=== PATIENT | male | born 1985 | race Two or more races ===

== ENCOUNTER 2022-09-30 10:34 | Emergency (ER) | payer BC, SELFPAY ==
[2022-09-30 11:07] VITALS: BP 132/38; PULSE 80; RESP 18; TEMP 36.8; O2SAT 98; BMI 26.4
--- NOTE | 2022-09-30 11:07 | ED.BACK ---
HPI - Back Pain/Injury General Chief Complaint: Skin/Abscess/Foreign Body Stated Complaint: Rash/Back pain Time Seen by Provider: 09/30/22 11:08 Source: patient Mode of arrival: ambulatory History of Present Illness HPI Narrative: 37-year-old male with no significant past medical history presenting to the ED complaining of painful rash to left chest and back x3 days. Reports burning pain. States rash and pain started at the same time. Denies known fever, chills, travel, nausea/vomiting, hematuria/dysuria MD elicited complaint: back pain Onset (ago): day(s) Related Data Previous Rx's Medication Instructions Recorded gabapentin 100 mg capsule 100 mg PO TID 7 days #21 caps 09/30/22 prednisone 10 mg tablet 10 mg PO DAILY #20 tabs 09/30/22 valacyclovir 1 gram tablet 1,000 mg PO TID 7 days #21 tabs 09/30/22 (Valtrex) Allergies Allergy/AdvReac Type Severity Reaction Status Date / Time No Known Allergies Allergy Verified 09/30/22 11:11 Review of Systems Review of Systems: Constitutional: No Weight loss, No Fever, No Chills ENT/Mouth: No Ear Pain, No Nasal Congestion, No sore throat, No Rhinorrhea, No Swallowing Difficulty Cardiovascular: No Chest Pain, No SOB Respiratory: No Cough, No Sputum, No Wheezing Gastrointestinal: No Nausea, No Vomiting, No Diarrhea, No Constipation, + Abdominal pain Genitourinary: No Dysuria, No Urinary Frequency, No Hematuria, No Urinary Incontinence/retention, No Urgency, No Flank Pain Musculoskeletal: No joint pain, No Myalgias, No Joint Swelling Skin: No Skin Lesions, + rash Neuro: No Weakness, No Numbness, No Paresthesias Yes all other systems are reviewed and are negative Constitutional: Constitutional: Reports as per [facility] Past Medical History Attestation statement: The following information was validated with the patient. Social History Social History Advance Directives: No Advance Directives Information Provided: No Physical Exam Vital Signs: Vital Signs: Last Vital Signs Temp 98.2 F 09/30/22 11:07 Pulse 80 09/30/22 11:07 Resp 18 09/30/22 11:07 BP 132/38 L 09/30/22 11:07 Pulse Ox 98 09/30/22 11:07 O2 Del Method 09/30/22 11:07 BMI result Body Mass Index 26.4 Const: General: cooperative, healthy appearing and no acute distress Orientation/consciousness: patient oriented x3 Limitations: no limitations HEENT: Head: Yes normal to inspection and Yes atraumatic Ears: hearing grossly normal bilaterally General nose exam: Normal external nose present Face and sinus: Yes normal facial exam Eyes: General: appearance normal, both eyes and all related structures EOM: EOMs intact bilaterally Neck: Neck: Yes normal visual inspection and Yes no meningeal signs Resp: Effort & Inspection: normal respiratory effort and no respiratory distress Auscultation: clear to auscultation bilaterally Cardio: Rate: regular rate Heart sounds: S1 normal heart sound present and S2 normal heart sound present GI: Inspection: Yes normal to inspection Palpation (GI): Soft to palpation, nontender, no guarding and not rigid : General: Yes no CVA tenderness Back/Spine/Pelvis: Back: no CVA tenderness Skin: Other: + vesicular shingles rash to left flank around to left chest, mild erythematous base. No open wounds/crusting, no warmth Wounds: no wounds Neuro: General: patient oriented x3, tone normal and no meningeal signs Gait exam (Neuro): Normal gait present Extrem: General: Yes normal to inspection Medical Decision Making Medical Decision Making MDM Narrative: 37-year-old male with no significant past medical history presenting to the ED complaining of painful rash to left chest and back x3 days. On exam vital signs stable, NAD, nontoxic, zoster rash noted to left flank/ chest wall in dermatomal fashion. No evidence of overlying cellulitis/infection. Low suspicion for intra-abdominal pathology including cholecystitis/lithiasis or pancreatitis/renal stone/pyelo. Will discharge home on Valtrex, prednisone, and gabapentin Results discussed with patient including worrisome signs and symptoms and strict return precautions, and when to return to the emergency department. They verbalized understanding and feel safe for discharge at this time. Differential Diagnosis Differential Diagnoses: The differential diagnosis associated with the presentation includes As above Prescription Management I considered prescription management with: Pain Medication and Antiviral Discharge Plan Discharge Clinical Impression: Herpes zoster Patient Disposition: Home, Self-Care Instructions: Shingles (ED) Additional Instructions: You have shingles. This is contagious. Stay away from children, elderly, and people as this can be very dangerous for them. Valtrex is an antiviral medication. Gabapentin is for pain. Prednisone is a steroid If area begins look infected, is increasingly or increasingly painful return to the emergency department Please follow-up with your doctor Maggi jacobo. [place] es contagioso. Mant?ngase alejado de los ni?os, ancianos y personas embarazadas, ya que esto puede ser muy peligroso para ellos. Valtrex es un medicamento antiviral. La gabapentina es para el dolor. La prednisona es un esteroide. Si el ?leydi comienza a lucir infectada, es cada vez m?s o cada vez m?s dolorosa, regrese al departamento de emergencias. Por favor, madie un seguimiento con holt m?dico. Prescriptions: New valacyclovir [Valtrex] 1 gram tablet 1,000 mg PO TID 7 Days Qty: 21 0RF gabapentin 100 mg capsule 100 mg PO TID 7 Days Qty: 21 0RF prednisone 10 mg tablet 10 mg PO DAILY Qty: 20 0RF Taper: Prednisone 40 mg daily for 3 Days and 0 Hour 30 mg daily for 3 Days and 0 Hour 20 mg daily for 3 Days and 0 Hour 10 mg daily for 3 Days and 0 Hour Rx Instructions: prednisone 10 mg: take 4 tablets (40 mg) for 2 days; 3 tablets (30 mg) for 2 days; 2 (20mg) tablets for 2 days and then 1 (10mg) tablet for 2 days Referrals: Physician,Unknown J [Physician] - 10 days Stand Alone Forms: Work/School Release Print Language: Wallisian
== END 2022-09-30 11:50 | disposition home or self-care (01) ==
PROVIDERS: Emergency Provider Emergency Medicine
DX: B02.9 Zoster without complications (principal)
CPT/HCPCS: 99282; 99283

== ENCOUNTER 2024-12-11 13:22 | Emergency (ER) | payer BC, SELFPAY ==
--- NOTE | ~2024-12-11 | XR_ITS ---
EXAMINATION: XR NECK SOFT TISSUE HISTORY: anterior abscess, ? Metallic FB COMPARISON: There are no prior studies for comparison. FINDINGS: AP and lateral views of the soft tissues of the neck are submitted. The epiglottis and aryepiglottic folds are unremarkable in appearance. The airways patent. There is soft tissue swelling over the thyroid cartilage. There is no prevertebral soft tissue swelling. No radiopaque foreign body is identified. XR/XR soft tissue neck IMPRESSION: Soft tissue swelling over the thyroid cartilage. No radiopaque foreign body is identified. Electronically signed by: Suhas Pickering MD 12/11/2024 02:26 PM EDT
[2024-12-11 13:48] VITALS: BP 112/50; PULSE 86; RESP 18; TEMP 37; O2SAT 100; BMI 24.4
--- NOTE | 2024-12-11 13:52 | ED_ITS ---
HPI - General Adult General Chief complaint: Skin/Abscess/Foreign Body Stated complaint: throat pain Time Seen by Provider: 12/11/24 17:10 History of Present Illness ED Provider: Saadia CASTELLANOS narrative: The patient is a 39-year-old male with no significant past medical history. He is concerned that he has an area of swelling and tenderness on his neck in the region of his Dwain's apple. He wonders if perhaps he injured himself shaving. 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 The patient says that he has had similar problems in the past but they have usually resolved on their own. He says he has a similar area of swelling on his left elbow and behind his left ear. Related Data Previous Rx's ?Medication ?Instructions ?Recorded gabapentin 100 mg capsule 100 mg PO TID 7 days #21 caps 09/30/22 prednisone 10 mg tablet 10 mg PO DAILY #20 tabs 09/30/22 valacyclovir 1 gram tablet 1,000 mg PO TID 7 days #21 tabs 09/30/22 (Valtrex) bacitracin 500 unit/gram topical 1 appl topical BID #14 grams 12/11/24 ointment cephalexin 500 mg capsule 500 mg PO QID 7 days #28 caps 12/11/24 sulfamethoxazole 800 1 tab PO BID #14 tabs 12/11/24 mg-trimethoprim 160 mg tablet (Bactrim DS) Allergies Allergy/AdvReac Type Severity Reaction Status Date / Time No Known Allergies Allergy Verified 12/11/24 13:50 Review of Systems 2 Review of Systems: Yes all other systems are reviewed and are negative [facility] Social History Social History Advance Directives: No Advance Directives Information Provided: No Physical Exam ED Vital Signs: Vital Signs - 24 hr 12/11/24 13:48 12/11/24 17:01 12/11/24 19:05 Temperature 98.6 F 98.4 F 98.4 F Pulse Rate 86 61 61 Respiratory Rate 18 16 16 Blood Pressure 112/50 L 115/70 115/70 Pulse Oximetry 100 98 98 Oxygen Delivery Method Room Air Room Air Room Air BMI result Body Mass Index 24.4 Const Other: The patient is awake and alert, pleasant and cooperative. He does not appear in acute distress. HENMT Other: The face is symmetrical. Mucous membranes moist. Eyes General: appearance normal, both eyes and all related structures Neck Other: The patient has an area of swelling and erythema in the middle of his neck overlying the thyroid cartilage. There are also some apparent pustule areas on the swelling. The area is tender. The neck is otherwise unremarkable. Resp Effort & Inspection: normal respiratory effort Cardio Rate: regular rate Rhythm: regular rhythm Heart sounds: S1 normal heart sound present and S2 normal heart sound present Skin Other: The patient has an area of redness and swelling to the skin over the thyroid cartilage. There are some pustules as well. The overall appearance is suggestive of a sebaceous cyst abscess. The patient also has a somewhat similar but less tender and red area of swelling over the left elbow and behind the left ear. Neuro Other: The patient is awake and alert with a normal mental status. Cranial nerves 2-12 are grossly intact. He moves his extremities normally. Extrem General: Yes normal to inspection, Yes no pedal edema and Yes no calf tenderness Course Course Course Narrative: This is a rapid medical exam performed by Camila Ray NP: Additional HPI, ROS, PE not included below will be deferred to primary provider. Patient is a 31-year-old Guinean-speaking male presented to emergency department with complaint of redness and swelling to his anterior throat for the past 3-4 days. Denies fevers. 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 Fluctuant erythema over cricoid cartilage. Plan: xray to r/o fb Medications Administered Discontinued Medications Generic Name Dose Route Start Last Admin Trade Name Georgette PRN Reason Stop Dose Admin Bacitracin 1 appl 12/11/24 18:11 12/11/24 18:59 Bacitracin Oint 0.9 Gm Packet TOPICAL 12/11/24 18:12 1 appl ONCE ONE Administration Protocol Cephalexin HCl 500 mg 12/11/24 18:08 12/11/24 18:59 Cephalexin 500 Mg Capsule PO 12/11/24 18:09 500 mg ONCE ONE Administration Lidocaine HCl 5 ml 12/11/24 17:25 12/11/24 17:55 Lidocaine Hcl 1 % Mpf 5 Ml Vial INFILTRATI 12/11/24 17:26 5 ml ONCE ONE Administration Trimethoprim/Sulfamethoxazole 1 tab 12/11/24 18:08 12/11/24 18:59 Sulfamethox/Trimeth 800/160 Tablet PO 12/11/24 18:09 1 tab ONCE ONE Administration Procedures Abscess I/D Site: neck (Anterior neck over thyroid cartilage) Local Anesthetic: lidocaine 1% Amount of anesthesia used (mL): 2 Technique: incised with blade Amount of fluid expressed (mL): 0.5 Sent for culture/gram staining?: Yes Irrigation: No Packing used?: none Medical Decision Making Medical Decision Making [facility] Narrative: The patient is a very pleasant 39-year-old male who has an area of swelling, redness, and discomfort to the skin of the anterior neck overlying the thyroid cartilage. The lesion has the appearance of a sebaceous cyst abscess. I explained to the patient that I thought he likely had an abscess and that an incision to drain a possible abscess would be appropriate. The patient understood and agreed to proceed. The skin was prepped with Betadine. I anesthetized across the lesion with 1% plain lidocaine using a 30 gauge needle. After good anesthesia was achieved I made an incision with a #11 Blade horizontally across the area of swelling. I was surprised at only a very small amount of pus was released with the incision. I probed into the swelling with forceps to see if I could find any pockets of pus but I really found very little additional pus and only a small amount of sebaceous material. The wound was swabbed with a culture swab and this was sent has a culture sample. The wound was dressed with bacitracin and a dressing. The patient will be started on cephalexin and Bactrim. The patient was given the contact information for [facility] [place] for a prompt follow up appointment. He should return if worse. Discharge Plan Discharge Clinical Impression: Sebaceous cyst Patient Disposition: Home, Self-Care Instructions: Abscess (ED), Abscess Incision and Drainage (DC) Additional Instructions: Please take the antibiotics as prescribed. Please take this sulfamethoxazole-trimethoprim 2 times a day. Please take the cephalexin 4 times a day. Please apply the bacitracin ointment 2 times a day with dressing changes to the wound. Please contact the surgery office tomorrow morning for a follow up appointment for further care of this problem. Please work on getting a regular primary care doctor. Return to the emergency room if significantly worse. Prescriptions: New sulfamethoxazole-trimethoprim [Bactrim DS] 800-160 mg tablet 1 tab PO BID Qty: 14 0RF cephalexin 500 mg capsule 500 mg PO QID 7 Days Qty: 28 0RF bacitracin 500 unit/gram ointment 1 appl topical BID Qty: 14 0RF No Action valacyclovir [Valtrex] 1 gram tablet 1,000 mg PO TID 7 Days Qty: 21 0RF gabapentin 100 mg capsule 100 mg PO TID 7 Days Qty: 21 0RF prednisone 10 mg tablet 10 mg PO DAILY Qty: 20 0RF Taper: Prednisone 40 mg daily for 3 Days and 0 Hour 30 mg daily for 3 Days and 0 Hour 20 mg daily for 3 Days and 0 Hour 10 mg daily for 3 Days and 0 Hour Rx Instructions: prednisone 10 mg: take 4 tablets (40 mg) for 2 days; 3 tablets (30 mg) for 2 days; 2 (20mg) tablets for 2 days and then 1 (10mg) tablet for 2 days Referrals: [facility] [place] General Surgeons [Provider Group] (Sebaceous cyst abscess) Stand Alone Forms: Work/School Release Interventions: ED Discharge Assessment Last Done: 12/11/24 19:05 Discharge Date/Time: 12/11/24 19:05 Print Language: Guinean
[2024-12-11 17:01] VITALS: BP 115/70; PULSE 61; RESP 16; TEMP 36.9; O2SAT 98
[2024-12-11] MEDS: Lidocaine HCl 1 % MPF 5 ML VIAL INFILTRATI (17:55)
[2024-12-11] MEDS: cephALEXin 500 MG CAPSULE PO (18:59)
[2024-12-11] MEDS: Sulfamethox/Trimeth 800/160 TABLET 1 TAB PO (18:59)
[2024-12-11] MEDS: Bacitracin Oint 0.9 GM PACKET 1 APPL TOPICAL (18:59)
[2024-12-11 19:05] VITALS: BP 115/70; PULSE 61; RESP 16; TEMP 36.9; O2SAT 98
== END 2024-12-11 19:05 | disposition home or self-care (01) ==
PROVIDERS: Emergency Provider Emergency Medicine
DX: L72.3 Sebaceous cyst (principal); M54.2 Cervicalgia; R07.0 Pain in throat
CPT/HCPCS: 10060; 70360; 87070; 87205; 99283; 99284; J2003

== ENCOUNTER → 2024-12-11 13:54 | Outpatient (BNV) | payer BC, SELFPAY | PROVIDERS: Visit Provider Radiology Diagnostic Radiology | DX: R22.1 Localized swelling, mass and lump, neck (principal) | CPT/HCPCS: 70360 ==

== ENCOUNTER 2024-12-14 09:45 | Outpatient (AMB) | payer SELFPAY ==
--- NOTE | 2024-12-14 09:49 | A.OFFVIS_ITS ---
Vital Signs 12/14/24 09:57 Height 5 ft 6 in Weight 154 lb BMI 24.9 Intake Visit Reasons: abscess of the neck Intake Note: This patient presents for [facility] emergency department follow-up for abscess of the neck. Pt c/o; on 2 rounds of abx cephalexin 500mg and Bactrim DS, reports abscess has diminished in size, reports last night after he showered he squeezed the area and had some discharge. Real Estate Recruiter Required: Yes Real Estate Recruiter Language: Kiss Setter Hand Services: Real Estate Recruiter Present Real Estate Recruiter Name: Pipo Information Interpreted: non-clinical & clinical Accompanied by: Self / Same As Patient Allergies No Known Allergies Allergy (Verified 12/14/24 09:59) Medication List - Last Reconciled 12/14/24 by Alberto Jose MD bacitracin 1 appl topical BID cephalexin 500 mg PO QID 7 days gabapentin 100 mg PO TID 7 days prednisone 10 mg See Taper PO DAILY sulfamethoxazole-trimethoprim 800-160 mg (Bactrim DS) 1 tab PO BID valacyclovir (Valtrex) 1,000 mg PO TID 7 days HPI HPI abscess of the neck: Details: 39-year-old male referred by the ER for an abscess on the anterior neck. He was seen there 3 days ago because of this abscess. He said he had a pimple like lesion on this area for long time but this has become swollen and tender. An I and D was attempted but there was minimal drainage. He was therefore referred to me because of the swelling He says that the swelling has decreased to some extent since that time. He denies any fever. He is on Bactrim for antibiotics. He does state that he has had cysts gets swollen periodically and he says that he has ?ingrown hair? on different parts of his body. [facility] Medical History (Updated 12/14/24 @ 10:33 by Alberto Jose MD) Infected sebaceous cyst Surgical History (Updated 12/14/24 @ 09:59 by ISMAEL Jefferson) No pertinent past surgical history Family History (Updated 12/14/24 @ 09:59 by ISMAEL Jefferson) Other Family history unknown Social History (Updated 12/14/24 @ 09:59 by ISMAEL Jefferson) Alcohol intake: unknown Patient Tobacco Use Status: Tobacco use Unknown Review of Systems Const Denies chills and Denies fever(s) Card Denies chest pain, Denies dyspnea and Denies dyspnea on exertion Resp Denies cough, Denies dyspnea and Denies dyspnea on exertion GI Denies hematochezia and Denies change in bowel habits Denies hematuria and Denies difficulty urinating Musc Denies back pain and Denies limited range of motion Neuro Denies focal weakness and Denies convulsions Psych Denies depression and Denies mood swings Physical Exam Vital Signs: BMI result Body Mass Index 24.9 Const General: comfortable and no acute distress Orientation/consciousness: patient oriented x3 Neck Other: Anterior neck with note of a cystic induration with central fluctuance, diameter of about 2.5 cm, well-defined Neck: Yes no lymphadenopathy Resp Auscultation: clear to auscultation bilaterally Cardio Rhythm: regular rhythm GI Palpation (GI): Soft to palpation, nontender and no guarding Neuro General: patient oriented x3 Office Procedures Debridement Details: He was in prone position. The area of the cyst on the neck was prepped and draped. Lidocaine 1% was used for local anesthesia. I made a cruciate incision on the skin overlying this central fluctuance using blade 11. This carried down through the full-thickness of the skin. There was note of a cystic area note of significant fibrinous contents as well as debris. Minimal pus was drained. I did sharp excisional debridement of all this debris within the cystic cavity. This was consistent with an infected epidermal cyst. I opened up an area about 1 cm in diameter. He therefore had an open wound. I instructed him on good wound care. He tolerated procedure well. There were no immediate complications. [id number] of skin tissue Procedure code (CPT) selection complete Assessment & Plan Assessment & Plan (1) Infected sebaceous cyst: Code(s): L72.3 - Sebaceous cyst; L08.9 - Local infection of the skin and subcutaneous tissue, unspecified Category: Medical Plan: He has what appears to be an infected sebaceous cyst on the anterior neck. This is still swollen has what appears to be central fluctuance. I explained to him it would be best to do an I and D and he agreed. I&D was done along with sharp debridement using scissors because of the presence of epithelial area and fibrinous debris in the cavity. He tolerated procedure well. He was given wound care instructions. He is to complete his course of oral antibiotics I will see him again in the office in about 2 weeks for a wound check. Coding Level of Care Code New Pt Level 3 (98857) Diagnoses Infected sebaceous cyst L72.3; L08.9 CPT Codes Skin Debridement - CPT: 23963-[id number] of skin tissue ([id number])
[2024-12-14 09:57] VITALS: BMI 24.9
== END 2024-12-14 10:35 | disposition home or self-care (01) ==
PROVIDERS: Visit Provider Surgery
DX: L72.3 Sebaceous cyst (principal); L08.9 Local infection of the skin and subcutaneous tissue, unspecified; L72.0 Epidermal cyst
CPT/HCPCS: 11042; 99203

== ENCOUNTER → 2024-12-14 09:45 | Outpatient (BNVA) | payer SELFPAY | PROVIDERS: Visit Provider Surgery | DX: L02.11 Cutaneous abscess of neck (principal); L72.3 Sebaceous cyst; Z79.2 Long term (current) use of antibiotics | CPT/HCPCS: 11042; 99202 ==

== ENCOUNTER 2025-01-04 15:02 | Outpatient (AMB) | payer BC, SELFPAY ==
--- NOTE | 2025-01-04 15:03 | MHC.OFFVIS ---
Vital Signs 01/04/25 15:11 Height 5 ft 6 in Weight 158 lb BMI 25.5 BP 127/64 Blood Pressure Location Rt brachial Position Sitting Pulse 91 Intake Visit Reasons: s/p excision abscess of the neck Intake Note: Patient here s/p I&D ant neck. Finished Bactrim, Cephalexin course. Reports improvement. Patient c/o: abscess much improved. Denies pain, oozing. Resident Athletic Trainer Required: No Accompanied by: Self / Same As Patient Allergies No Known Allergies Allergy (Verified 01/04/25 15:09) Medication List - Last Reviewed 01/04/25 by ISMAEL Browning bacitracin 1 appl topical BID HPI HPI s/p excision abscess of the neck: Details: He had undergone debridement of an infected epidermal cyst in the posterior neck the office last 12/14/2024. He tolerated procedure well. He denies any new complaints. He also has a mass on the left arm near the elbow that he has had for about a year now. He says that this often times swell up. He wants this removed as well. [facility] Medical History (Updated 01/04/25 @ 15:19 by Alberto Jose MD) Epidermal cyst Infected sebaceous cyst Surgical History No pertinent past surgical history Family History Father HTN (hypertension) Other Family history unknown Social History Alcohol intake: current Alcohol intake frequency: a few times a week Alcohol type: beer Patient Tobacco Use Status: Tobacco use Unknown Cigarettes Per Day: 10 Review of Systems Const Denies chills and Denies fever(s) Card Denies chest pain, Denies dyspnea and Denies dyspnea on exertion Resp Denies cough, Denies dyspnea and Denies dyspnea on exertion GI Denies hematochezia and Denies change in bowel habits Denies hematuria and Denies difficulty urinating Musc Denies back pain and Denies limited range of motion Neuro Denies focal weakness and Denies convulsions Psych Denies depression and Denies mood swings Physical Exam Const General: comfortable and no acute distress Neck Other: Debridement site anterior neck is well healed, fully reepithelialized, not infected, Resp Effort & Inspection: normal respiratory effort Extrem Other: Left arm near the elbow is note of a cystic induration, about 2 cm in diameter, with some restlessness, consistent with an epidermal cyst, not fluctuant Assessment & Plan Assessment & Plan (1) Infected sebaceous cyst: Code(s): L72.3 - Sebaceous cyst; L08.9 - Local infection of the skin and subcutaneous tissue, unspecified Category: Medical Plan: I had sharply debrided an infected epidermal cyst on the anterior neck. This has now fully healed. He can follow up on a p.r.n. basis for this. (2) Epidermal cyst: Code(s): L72.0 - Epidermal cyst Category: Medical Plan: He has a cystic induration on the left arm near the elbow that appears to be an epidermal cyst. He wants this removed. He understands the technique of excision under local anesthesia. He is aware of the risks, benefits, and alternatives We will schedule him for excision of this epidermal cyst in the office on his next visit. Coding Level of Care Code Est Pt Level 3 (54899) Diagnoses Infected sebaceous cyst L72.3; L08.9 Epidermal cyst L72.0
[2025-01-04 15:11] VITALS: BP 127/64; PULSE 91; BMI 25.5
--- OUTSIDE RECORDS SUMMARY | 2025-01-04 17:33 | XMS_ITS | Clinical Summary ---
Author Organization [facility] ity Address [address] [place] [address] Care Team Providers Care Senior Business Analyst Name Role Phone Unavailable Primary Care Provider Unavailabl e Social History Tobacco Use Types Packs/Day Years Used Date Smoking Tobacco: Never Assessed Sex and Gender Information Value Date Recorded Sex Assigned at Not on file Legal Sex Male 11:28 PM EST Gender Identity Not on file Sexual Orientation Not on file Plan of Treatment Health Maintenance Due Date Last Done Comments DTaP,Tdap,and Td Vaccines (1 - Tdap) 2005 Hepatitis B Vaccines (1 of 3 - 19+ 3-dose series) 2005 COVID-19 Vaccine (2023-2 5 season) 2024 Influenza Vaccine (Season Ended) 2025 HIB Vaccines Aged Out No longer eligi ble based on patient's age to complete this topic HPV Vaccines Aged Out No longer eligi ble based on patient's age to complete this topic Hepatitis A Vaccines Aged Out No long er eligible based on patient's age to complete this topic IPV Vaccines Aged Out No longer eligi ble based on patient's age to complete this topic MMR Vaccines Aged Out No longer eligi ble based on patient's age to complete this topic Meningococcal ACWY Vaccine Aged Out N o longer eligible based on patient's age to complete this topic Meningococcal B Vaccine Aged Out No l onger eligible based on patient's age to complete this topic Pneumococcal Vaccine: Pediat rics (0 to 5 Years) and At-Risk Patients (6 to 64 Years) Aged Out No longer eligible b ased on patient's age to complete this topic RSV Immunization Patients Un dominique 20 months Aged Out No longer eligible b ased on patient's age to complete this topic Varicella Vaccines Aged Out No longer eligible based on patient's age to complete this topic
== END 2025-01-04 15:21 | disposition home or self-care (01) ==
PROVIDERS: Visit Provider Surgery
DX: L72.3 Sebaceous cyst (principal); L08.9 Local infection of the skin and subcutaneous tissue, unspecified; L72.0 Epidermal cyst
CPT/HCPCS: 99213